=== PATIENT | male | born 1960 | race African-American/Black ===

== ENCOUNTER 2016-12-09 13:57 | Emergency (ER) | payer MEDICAID, OTHER ==
[~2016-12-09] VITALS: Ht 180.3 cm; Wt 77.3 kg
[~2016-12-09 13:57] MED LIST: NOCURR
[2016-12-09] MEDS ORDERED: IBUPROFEN 800 MG TABLET PO ONE (17:45)
[2016-12-09 18:04] VITALS: BP 134/92
== END 2016-12-09 18:07 | disposition home or self-care (01) ==
LOC: EMS 13:58
DX: S93.402A Sprain of unspecified ligament of left ankle, initial encounter (principal); F17.210 Nicotine dependence, cigarettes, uncomplicated; X58.XXXA Exposure to other specified factors, initial encounter; Y93.01 Activity, walking, marching and hiking; Y92.480 Sidewalk as the place of occurrence of the external cause; Y99.8 Other external cause status
CPT/HCPCS: 29515; 99284